=== PATIENT | female | born 2000 | race Caucasian/White ===

== ENCOUNTER 2024-03-30 14:41 | Outpatient (CLI) | payer OTHER, SELFPAY ==
[2024-04-01 14:35] LABS: QuantiFERON Mitogen minus NIL 9.98 IU/mL; QuantiFERON NIL 0.02 IU/mL; Quantiferon TB Gold Plus Negative (Negative)
== END 2024-03-30 14:42 | disposition home or self-care (01) ==
LOC: LAB 14:46
PROVIDERS: PCP Nurse Practitioner; Visit Provider Nurse Practitioner
DX: Z11.1 Encounter for screening for respiratory tuberculosis (principal)
CPT/HCPCS: 36415; 86480